=== PATIENT | male | born 1970 | race Caucasian/White ===

== ENCOUNTER 2021-12-01 13:32 | Emergency (ER) | payer BC, SELFPAY ==
[2021-12-01 14:30] VITALS: BP 143/88; PULSE 78; RESP 20; TEMP 36.7; O2SAT 95; BMI 4491.3
--- NOTE | 2021-12-01 15:21 | HMH.EDUTC ---
[facility] [place] Disposition Clinical Impression: Sinusitis Qualifiers: Sinusitis location: maxillary Chronicity: acute Recurrence: non-recurrent Qualified Code(s): J01.00 - Acute maxillary sinusitis, unspecified Bilateral otitis media Qualifiers: Otitis media type: suppurative Chronicity: acute Recurrence: non-recurrent Spontaneous tympanic membrane rupture: without spontaneous rupture Qualified Code(s): H66.003 - Acute suppurative otitis media without spontaneous rupture of ear drum, bilateral Disposition: Home, Self-Care Condition on Discharge: Good Instructions: DI for Sinusitis Prescriptions: Amoxicillin [Amoxicillin 875MG Tab] 875 mg PO Q12H #20 tab Transmission Status: Pending to [facility] Referrals: Chris Carrillo [Primary Care Provider] - Time of Disposition: 15:27 Medical Decision Making - Nnamdi Inquiry Pt receiving controlled substance: No Vital Signs: 12/01/21 14:30 Temperature 98.0 F Temperature Source Oral Pulse Rate [Right Brachial] 78 Respiratory Rate 20 Blood Pressure [Right Arm] 143/88 H Blood Pressure Mean [Right Arm] 106 Blood Pressure Source [Right Arm] Automatic Cuff Blood Pressure Position [Right Arm] Sitting 02 Sat by Pulse Oximetry 95 Oxygen Delivery Method Room Air [facility] [place] HPI - General Stated complaint: sinus congestion, cough, sore throat Time Seen by Provider: 12/01/21 15:24 Mode of Arrival: Ambulatory Source of Information: Patient Limitations: No Limitations Description of Symptoms (Recalled from Triage Doc. by RN): PATIENT C/O SINUS PRESSURE AND CONGESTION SINCE SATURDAY HEENT Symptoms (Recalled from RN notes): No Resp Symptoms (Recalled from RN notes): No Skin Symptoms (Recalled from RN notes): No MS Symptoms (Recalled from RN notes): No Functional Status (Recalled from RN notes): WNL - History of Present Illness Provider Complaint: Sinus pain and pressure, congestion, runny nose, bilateral ear pain X 3 days. No fever. Mild sore throat. No cough. No shortness of breath. No vomiting or diarrhea. Onset (ago): day(s) (3) Location: head Consistency: constant Relieving factors: none Exacerbating factors: none Associated symptoms: denies other symptoms Treatments prior to arrival: other (Mucinex, Flonase) - Related Data Previous Rx's Medication Instructions Recorded Amoxicillin [Amoxicillin 875MG 875 mg PO Q12H #20 tab 12/01/21 Tab] Allergies Allergy/AdvReac Type Severity Reaction Status Date / Time No Known Allergies Allergy Verified 12/01/21 14:48 - Worker's Comp Is this a Worker's Comp case?: No [facility] History - Hepatitis A Screen Drug use history?: No High risk sexual behaviors?: No History of sexually transmitted infection?: No Currently employed?: No Childcare worker?: No Do you have indoor plumbing?: Yes Do you have electricity?: Yes Attestation statement:: This patient has been screened for Hepatitis A risk factors. I have reviewed the patient's past medical history: Yes Medical History: Reports:: Diabetes Mellitus Type 1, Hypertension Denies:: Diabetes Mellitus Type 2 Laterality Cases: Right: Other Other Surgeries: Yes: No Previous Surgery, Hernia Repair Amputation: No Fractures: Yes Comment: right ankle repair - Social History Smoking Status: Current every day smoker Tobacco Type: cigarettes # Packs/Day (cigarettes): 1 Alcohol Intake: current Alcohol Intake Frequency:: holidays/special occasions only Substance Use Type: denies use Occupational Status: employed Housing: house Household Members: family Family Hx:: Hypertension, Cancer, Diabetes ROS Obtained: Yes All systems reviewed & no additional complaints - Constitutional Constitutional: Reports headache(s) - ENT Ears, Nose, Mouth, and Throat: Reports otalgia, Reports nasal congestion, Reports sinus pain Physical Exam - General General appearance: alert, in no apparent distress - Head Head exam: normocephalic - Eye Eye exam: Present: PERRL
[2021-12-01 15:34] VITALS: BP 143/88; PULSE 78; RESP 20; TEMP 36.7; O2SAT 95
== END 2021-12-01 15:41 | disposition home or self-care (01) ==
PROVIDERS: Emergency Provider Physician Assistant; PCP Family Medicine
DX: J01.00 Acute maxillary sinusitis, unspecified (principal); J02.9 Acute pharyngitis, unspecified; I10 Essential (primary) hypertension; E11.9 Type 2 diabetes mellitus without complications; F17.210 Nicotine dependence, cigarettes, uncomplicated; Z82.49 Family history of ischemic heart disease and other diseases of the circulatory system; Z83.3 Family history of diabetes mellitus; Z80.9 Family history of malignant neoplasm, unspecified
CPT/HCPCS: 96372; 99213; G0463; J0696; J1040

== ENCOUNTER 2022-10-23 23:14 | Day surgery (SDC) | payer BC, SELFPAY ==
--- NOTE | 2022-10-23 23:15 | PC.NURSE ---
speaking with Dr. Chaney
--- NOTE | 2022-10-23 23:18 | PC.NURSE ---
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
[2022-10-23 23:20] VITALS: BP 174/110; PULSE 87; RESP 18; TEMP 36.6; O2SAT 98; BMI 31.1
--- NOTE | 2022-10-23 23:33 | HMH.EDSKAF ---
Discharge Plan Disposition Patient Disposition: Still a Patient Chief Complaint: Skin/Abscess/Foreign Body Prescriptions Prescriptions: No Action amoxicillin 875 MG tablet 875 mg PO Q12H Qty: 20 0RF Referrals Follow up/Referrals: Chris Carrillo [Primary Care Provider] - See instructions Clinical Impressions Clinical Impression: Distal esophageal obstruction due to foreign body Instructions Patient Instructions: DI for Skin Abscess Discharge ED Provider: Marily (ED)Nash Skin/Abscess/FB HPI General Chief complaint: Skin/Abscess/Foreign Body Stated complaint: Food bolus Time Seen by Provider: 10/23/22 23:15 Mode of Arrival: Ambulatory Source of Information: Patient and Medical Record Limitations: No Limitations Description of Symptoms (Recalled from ER Triage Doc. by RN): Pt states that he was eating steak at approx 2215 tonight when the food became lodged in his throat. States that since then he has been vomiting every time he tries to swallow water. Patient is able to breathe. History of Present Illness HPI narrative: piece of steak lodged tonight in esophagus - has hx of food sticking but no prev episode like this - no resp sx MD complaint: foreign body Onset (ago): hour(s) Tetanus up to date: unsure Related Data Home Medications Medication Instructions Recorded Confirmed amlodipine 10 mg tablet 10 mg PO DAILY htn 10/23/22 10/23/22 lisinopril 40 mg tablet 40 mg PO DAILY htn 10/23/22 10/23/22 Allergies Allergy/AdvReac Type Severity Reaction Status Date / Time No Known Allergies Allergy Verified 12/01/21 14:48 [facility] Disclaimer: The information contained in this section may have been updated after the patient was seen, as this information can be updated by other users. Social History Smoking Status: Current every day smoker tobacco type: cigarettes packs per day: 1 alcohol intake: current substance use type: denies use current occupational status: employed Travel in the last 8 weeks: None household members: family housing: house ROS Obtained: Yes All systems reviewed & no additional complaints except as documented Physical Exam General General appearance: alert Head Head exam: normocephalic Eye Eye exam: Present PERRL and EOMI ENT ENT exam: Present mucous membranes moist Neck Neck exam: Present trachea midline Respiratory Respiratory exam: Present normal lung sounds bilaterally; Absent respiratory distress Cardiovascular Cardiovascular exam: Present regular rate Abdominal Exam Abdominal exam: Present soft Extremities Exam Extremities exam: Present full ROM Neurological Exam Neurological exam: Present alert and CN II-XII intact Skin Skin exam: Absent rash Medical Decision Making Medical Records Medical records reviewed: Yes I reviewed the patient's medical records. Nnamdi Inquiry Pt receiving controlled substance: No Vital Signs: 10/23/22 23:20 Temperature 98 F Temperature Source Oral Pulse Rate [Apical] 87 Respiratory Rate 18 Blood Pressure [Right Arm] 174/110 H Blood Pressure Mean [Right Arm] 131 Blood Pressure Source [Right Arm] Automatic Cuff Blood Pressure Position [Right Arm] Sitting 02 Sat by Pulse Oximetry 98 Oxygen Delivery Method Room Air Orders (Tests/Meds): ORDERS Category Date Time Status Complete Blood Count Auto Diff Stat Lab 10/23/22 23:27 Ordered Comprehensive Metabolic Panel Stat Lab 10/23/22 23:27 Ordered Physician Consults Physician Consulted: clint Reason -: Pt condition Medical Decision Narrative: has esophageal fb and will go to surg for egd Critical Care Time Critical Care Time Critical Care Time: No Attestation: On 10/23/22, the high probability of a clinically significant, sudden or life threatening deterioration of the following system(s) required my full and direct attention, intervention and personal management. The time I documented below is in addition to time spent performin
--- NOTE | 2022-10-23 23:35 | PC.NURSE ---
Attempted to call patients sister Alia Ledesma at [phone]. Was unable to contact Alia. Called [facility] dispatch requesting an office go by her house to wake up the sister so that the patient can have family available following surgery.
[2022-10-23 23:43] LABS: Basophils # 0.1 K/mm3 (0-0.2); Basophils % 1.3 % (0.1-2.0); Eosinophils # 0.2 K/mm3 (0.0-0.4); Eosinophils % 2.1 % (0.1-12.0); Hematocrit 49.3 % (42.0-52.0); Hemoglobin 16.5 g/dL (14.1-18.0); Lymphocytes # 2.4 K/mm3 (0.7-4.5); Mean Corpuscular HGB Conc 33.4 g/dL (31.8-35.4); Mean Corpuscular Hemoglobin 33.2 pg (27.0-31.2); Mean Corpuscular Volume 99.3 fl (80-94); Mean Platelet Volume 8.8 fl (7.4-10.4); Monocytes # 0.5 K/mm3 (0.1-1.0); Monocytes % 6.2 % (1.7-9.3); Neutrophils # 5.5 K/mm3 (1.8-7.8); Neutrophils % 63.4 % (37.0-80.0); Platelet Count 217 K/mm3 (142-424); Red Blood Count 4.96 M/mm3 (4.60-6.20); White Blood Count 8.7 K/mm3 (4.8-10.8)
--- NOTE | 2022-10-23 23:44 | PC.NURSE ---
Dr. Johnston at bedside with pt
--- NOTE | 2022-10-23 23:44 | PC.NURSE ---
Dr. Johnston signing surgical consent and reviewing paperwork
[2022-10-23 23:46] LABS: Chloride 105 mmol/L (98-107); Potassium 3.6 mmoL/L (3.5-5.1); Sodium 143 mmol/L (136-145)
[2022-10-23 23:48] LABS: Blood Urea Nitrogen 12 mg/dl (9-20); Creatinine Clearance Estimated 115 mL/min (50-200); Estimated Glomerular Filt Rate 70 ml/min (>60); GFR (African American) 85 ML/MIN (>60)
[2022-10-23 23:49] LABS: Alanine Aminotransferase 53 U/L (12-78); Albumin/Globulin Ratio 1.5 (1.1-1.8); Alkaline Phosphatase 107 U/L (38-126); Anion Gap 16.6 mEq/L (5-15); Aspartate Amino Transferase 52 U/L (17-59); Bilirubin,Total 0.5 mg/dl (0.2-1.3); Calcium 8.8 mg/dl (8.4-10.2); Carbon Dioxide 25 mmol/L (22.0-30.0); Globulin 3.4 g/dL (1.3-3.2); Glucose 104 mg/dl (74-100); Total Protein,Serum 8.4 g/dl (6.3-8.2)
[2022-10-24] VITALS (8 sets, daily range): BP systolic 100–170; BP diastolic 50–95; PULSE 79–89; RESP 15–18; TEMP 36.6–36.8; O2SAT 92–99
--- NOTE | 2022-10-24 | PC.NURSE ---
Anesthesia and surgery team at bedside, taking pt up to OR via stretcher.
--- NOTE | 2022-10-24 | PC.NURSE ---
PD called and stated pt's siter does not live at [address] Pt unable to give address except by the [employer] school . PD able to find another address for Fahad rohityair and they will attempt to collect her.
--- NOTE | 2022-10-24 00:25 | HMH.SCOPE ---
Procedure: Date: 10/24/22 Patient Date of :: 1970 Procedure Performed:: Esophagogastroscopy with foreign body removal Indications:: Esophageal foreign body Performing Provider:: Kameron Johnston MD Referring Provider:: Emergency Department Sedation:: General anesthesia Procedure:: After informed consent was obtained the patient was taken to the endoscopy suite. Sedation ensued after the patient was transferred to the left lateral decubitus position. Pulse, blood pressure, and oxygen saturation were monitored throughout the procedure. The endoscope was advanced to the distal esophagus where an impacted foreign body consistent with ingested food particles was noted. This food particle bolus was removed in a retrograde fashion via snare. The gastroscope was then advanced into the gastric lumen before being carefully removed. The patient was then transferred to recovery in stable condition after extubation. Please see findings and specimens below for detail. Findings:: Foreign body food particle bolus removed via snare in a retrograde fashion Specimens:: None for pathology Recommendations:: Proton pump inhibition twice daily Clear liquid diet for 24 hours... Followed by full liquid diet for 24 hours... Followed by soft diet Outpatient follow-up for further evaluation and management Complications:: No immediate Estimated blood obtained (mL): 0
--- NOTE | 2022-10-24 00:40 | P.PN_ITS ---
[facility] Disclaimer: The information contained in this section may have been updated after the patient was seen, as this information can be updated by other users. Social History Smoking Status: Current every day smoker tobacco type: cigarettes packs per day: 1 alcohol intake: current substance use type: denies use current occupational status: employed Travel in the last 8 weeks: None household members: family housing: house [facility] Anesthesia Checklist Patient Identification Patient Identification: Arm Band and Verbal (Name & ) Structural Data Admitted From: Emergency Dept Planned Operative Procedure/s: EDG Consent for Planned Operative Procedure(s) Verified: Yes NPO Status Verified Time NPO: 23:00 Airway Assessment C-Spine Mobility Assessed: Yes TMJ Mobility Assessed: Yes Dentition: Poor Dentition Neurological Assessment Level of Consciousness: Awake Hx Seizures: No Numbness or tingling in extremities: No Anesthesia Plan Anesthesia Risk discussed: Yes Anesthesia Plan: Verified ASA Class: III (E) Anesthesia Type: General
--- NOTE | 2022-10-24 00:41 | P.PNANES_ITS ---
[facility] Anesthesia Record Part I Anesthesia Record I Intake, IV Amount: 100 Estimated blood loss (mL): 0 Urine output (mL): 0 Blood Pressure: 100/50 SaO2: 92 Pulse Rate: 79 Respiratory Rate: 15 Temperature: 97.8 F Patient is:: Awake Stable to PACU at:: 00:20
== END 2022-10-24 01:20 | disposition home or self-care (01) ==
LOC: ER 23:51 → SDC 10-24 00:45
PROVIDERS: Emergency Provider Emergency Medicine; PCP Family Medicine; Visit Provider Surgery
PROC: 0DJ08ZZ Inspection of Upper Intestinal Tract, Via Natural or Artificial Opening Endoscopic (ICD-10-PCS; CPT 43235; principal; 2022-10-24)
DX: T18.128A Food in esophagus causing other injury, initial encounter (principal); F17.210 Nicotine dependence, cigarettes, uncomplicated
CPT/HCPCS: 43247; 80053; 85025; J2704

== ENCOUNTER 2022-10-24 06:41 | Emergency (ER) | payer BC, SELFPAY ==
[2022-10-24] VITALS (10 sets, daily range): BP systolic 121–149; BP diastolic 78–95; PULSE 64–89; RESP 18–20; TEMP 36.8; O2SAT 92–98; BMI 31.1
--- NOTE | 2022-10-24 07:43 | PC.NURSE ---
blood sent to the lab at this time
[2022-10-24 07:58] LABS: Eosinophils # 0.1 K/mm3 (0.0-0.4); Lymphocytes # 1.7 K/mm3 (0.7-4.5); Mean Platelet Volume 8.3 fl (7.4-10.4); Monocytes # 0.4 K/mm3 (0.1-1.0); Neutrophils # 5.9 K/mm3 (1.8-7.8)
[2022-10-24 08:04] LABS: Basophils % 0.5 % (0.1-2.0); Eosinophils % 1.1 % (0.1-12.0); Hematocrit 44.6 % (42.0-52.0); Lymphocytes % 20.3 % (10-50); Mean Corpuscular HGB Conc 33.1 g/dL (31.8-35.4); Mean Corpuscular Hemoglobin 33.2 pg (27.0-31.2); Mean Corpuscular Volume 100.5 fl (80-94); Monocytes % 5.1 % (1.7-9.3); Platelet Count 167 K/mm3 (142-424); Red Blood Count 4.44 M/mm3 (4.60-6.20); White Blood Count 8.1 K/mm3 (4.8-10.8)
[2022-10-24 08:05] LABS: Chloride 108 mmol/L (98-107); Hemoglobin 14.7 g/dL (14.1-18.0); Sodium 142 mmol/L (136-145)
[2022-10-24 08:08] LABS: Alanine Aminotransferase 43 U/L (12-78); Albumin Level 4.3 g/dl (3.5-5.0); Albumin/Globulin Ratio 1.6 (1.1-1.8); Alkaline Phosphatase 94 U/L (38-126); Aspartate Amino Transferase 40 U/L (17-59); Bilirubin,Total 0.5 mg/dl (0.2-1.3); Blood Urea Nitrogen 10 mg/dl (9-20); Calcium 8.3 mg/dl (8.4-10.2); Carbon Dioxide 26 mmol/L (22.0-30.0); Creatinine Clearance Estimated 126 mL/min (50-200); Estimated Glomerular Filt Rate 78 ml/min (>60); GFR (African American) 95 ML/MIN (>60); Globulin 2.7 g/dL (1.3-3.2); Glucose 78 mg/dl (74-100)
[2022-10-24 08:14] LABS: C-Reactive Protein 28.1 mg/L (0-4)
--- NOTE | 2022-10-24 08:24 | CT_ITS ---
FINAL REPORT TECHNIQUE: Thin section axial CT images were obtained through the neck after intravenous contrast administration. Coronal and sagittal reformats were also obtained. This study was performed with techniques to keep radiation doses as low as reasonably achievable (ALARA). Individualized dose reduction techniques using automated exposure control or adjustment of mA and/or kV according to the patient''s size were employed. CLINICAL HISTORY: recent EGD and now with throat pain COMPARISON: None FINDINGS: The nasopharynx, oropharynx, hypopharynx and larynx are unremarkable. There are few small scattered cervical lymph nodes. The thyroid gland is unremarkable. There is mild mucoperiosteal thickening in the bilateral maxillary and ethmoid air cells. No air-fluid levels are seen. Well no mass or fluid collection identified. There are mild chronic changes in the upper lobes. There is no acute osseous abnormality. IMPRESSION: Few small scattered cervical lymph nodes. Sinus disease as described. Reviewed, Interpreted and Dictated by Brant Yeager MD Transcribed by Adela Beltran Authenticated and [facility]
--- NOTE | 2022-10-24 08:33 | PC.NURSE ---
pt to ct at this time
[2022-10-24 08:48] LABS: Procalcitonin 0.053 ng/mL (0.0-2.0)
[2022-10-24 09:02] LABS: Erythrocyte Sedimentation Rate 14 mm/hr (0-20)
--- NOTE | 2022-10-24 09:14 | HMH.EDGENADL ---
Discharge Plan Disposition Patient Disposition: Home, Self-Care Chief Complaint: Allergic Reaction Prescriptions Prescriptions: No Action amlodipine 10 mg tablet 10 mg PO DAILY lisinopril 40 mg tablet 40 mg PO DAILY Referrals Follow up/Referrals: Chris Carrillo [Primary Care Provider] - See instructions Activity Restrictions/Add. Instructions Additional Instructions/Restrictions: Return to emergency department for worsening pain swelling difficulty breathing wheezing or any other concerns within the next 8 hours. Otherwise follow-up with your primary care physician and merchandise complaint adjuster as recommended Clinical Impressions Clinical Impression: Pain in throat Discharge ED Provider: Juno Hdz General Adult HPI General Chief complaint: Allergic Reaction Stated complaint: tongue swollen Time Seen by Provider: 10/24/22 08:00 Mode of Arrival: Family Vehicle Source of Information: Patient Limitations: No Limitations Description of Symptoms (Recalled from ER Triage Doc. by RN): Pt returns to the ER severals housr post food bolus removal by Dr. Johnston with c/o tounge swelling. States he woke up about 0400 and noticed the swelling. He took Benadryl 50mg PO at this time. Reports it is hard to breathe because it is so swollen . Pt able to communicate with a hoarse voice. History of Present Illness HPI narrative: 52-year-old male presents with sore throat and tongue swelling for the last few hours. He denies difficulty breathing wheezing he is able to swallow at this time as well. No abdominal pain nausea or vomiting. No fever no chills. No lip swelling or rash. Of note he did have EGD done last night for food bolus obstruction and was intubated for this. Related Data Home Medications Medication Instructions Recorded Confirmed amlodipine 10 mg tablet 10 mg PO DAILY htn 10/23/22 10/23/22 lisinopril 40 mg tablet 40 mg PO DAILY htn 10/23/22 10/23/22 Allergies Allergy/AdvReac Type Severity Reaction Status Date / Time No Known Allergies Allergy Verified 12/01/21 14:48 [facility] Disclaimer: The information contained in this section may have been updated after the patient was seen, as this information can be updated by other users. Social History Smoking Status: Current every day smoker tobacco type: cigarettes packs per day: 1 alcohol intake: current substance use type: denies use current occupational status: employed Travel in the last 8 weeks: None household members: family housing: house ROS Obtained: Yes All systems reviewed & no additional complaints except as documented Constitutional Constitutional: Denies fatigue and Denies headache(s) Eyes Eyes: Denies change in vision ENT Ears, Nose, Mouth, and Throat: Denies dysphagia, Denies headache(s) and Denies throat swelling Cardiovascular Cardiovascular: Denies dyspnea Respiratory Respiratory: Denies dyspnea and Denies wheezing Gastrointestinal Gastrointestingal: Denies diarrhea, dysphagia or nausea Genitourinary Male Genitourinary: Denies urinary frequency Musculoskeletal Musculoskeletal: Denies joint swelling Integumentary/Breasts Skin/Breast: Denies rash Neurologic Neurologic: Denies headache(s) Endocrine Endocrine: Denies fatigue Allergic/Immunologic Allergic/Immunologic: Denies throat swelling, Denies urticaria and Denies wheezing Physical Exam General General appearance: alert and in no apparent distress Head Head exam: atraumatic, normocephalic and normal inspection Eye Eye exam: Present normal appearance, PERRL and EOMI ENT ENT exam: Present normal exam, normal oropharynx, mucous membranes moist, TM's normal bilaterally, normal external ear exam and other (No appreciable enlargement of the tongue, no lip swelling no rash, visualized posterior oropharynx to the uvula without edema.) Neck Neck exam: Present normal inspection, full ROM and trachea midline; Absent
--- NOTE | 2022-10-24 10:08 | PC.NURSE ---
pt given meal tray
[2022-10-24 14:57] LABS: Anion Gap 11.8 mEq/L (5-15); Potassium 3.8 mmoL/L (3.5-5.1)
== END 2022-10-24 10:32 | disposition home or self-care (01) ==
PROVIDERS: Emergency Medicine; Emergency Provider Emergency Medicine; PCP Family Medicine
DX: R07.0 Pain in throat (principal); F17.210 Nicotine dependence, cigarettes, uncomplicated
CPT/HCPCS: 70491; 80053; 84145; 85025; 85651; 86140; 96361; 96374; 96375; 99285; Q9967